=== PATIENT | male | born 1935 | race Hispanic/Latino ===

== ENCOUNTER 2017-05-04 01:51 | Emergency (ER) | payer MEDICARE ==
[2017-05-04 01:52] VITALS: BMI 27.1
[2017-05-04 02:01] VITALS: PULSE 72; TEMP 97.7
--- NOTE | 2017-05-04 02:42 | ED PDOC ---
Arrival/HPI - General Chief Complaint: Wound Check Time Seen by Provider: 05/04/17 01:55 Historian: Patient - History of Present Illness Narrative History of Present Illness (Text): 05/04/17 02:43 An 81 year old male, whose past medical history includes hypertension, presents to the emergency department complaining of left ear laceration. Patient reports he had left ear surgery about two weeks ago, stitches placed in a week ago. Notes several stitches in place, one stitch came out about half an hour prior to arrival. Patient was resting and in unsure of how stitch was removed. Patient denies any headache, dizziness or any other complaints at this time. Denies any history of diabetes. Medication: Aspirin Time/Duration: Prior to Arrival Symptom Onset: Sudden Symptom Course: Unchanged Activities at Onset: Rest Context: Home Past Medical History - Provider Review Nursing Documentation Reviewed: Yes - Infectious Disease Hx of Infectious Diseases: None - Tetanus Immunization Tetanus Immunization: Unknown - Cardiac Hx Hypertension: Yes Hx Pacemaker: No Other/Comment: OPEN HEART SURGERY 3 YEARS AGO - Pulmonary Hx Respiratory Disorders: No - Neurological Hx Neurological Disorder: No - HEENT Hx HEENT Disorder: No - Renal Hx Renal Disorder: No - Endocrine/Metabolic Hx Endocrine Disorders: No - Hematological/Oncological Hx Blood Transfusions: No Hx Blood Transfusion Reaction: No - Musculoskeletal/Rheumatological Hx Musculoskeletal Disorders: No - Gastrointestinal Hx Gastrointestinal Disorders: No - Psychiatric Hx Emotional Abuse: No Hx Physical Abuse: No Hx Substance Use: No - Surgical History Hx Open Heart Surgery: Yes Other/Comment: ENGROIN NAIL SURGERY - Anesthesia Hx Anesthesia: No Hx Anesthesia Reactions: No Hx Malignant Hyperthermia: No - Suicidal Assessment Feels Threatened In Home Enviroment: No Family/Social History - Physician Review Nursing Documentation Reviewed: Yes Family/Social History: No Known Family HX Smoking Status: Never Smoked Hx Alcohol Use: No Hx Substance Use: No Allergies/Home Meds Allergies/Adverse Reactions: Allergies No Known Allergies Allergy (Verified 03/20/12 11:44) Home Medications: Home Meds Medication Instructions Recorded Confirmed Metoprolol Succinate 50 mg PO DAILY 01/02/14 05/04/17 Review of Systems - Physician Review All systems were reviewed & negative as marked: Yes - Review of Systems Constitutional: Normal ENT: Other (left ear laceration) Skin: Laceration (from surgery) Neurological: absent: Headache, Dizziness Hemo/Lymphatic: absent: Easy Bleeding Physical Exam Vital Signs Reviewed: Yes Vital Signs Temp Pulse Resp BP Pulse Ox 05/04/17 03:25 72 20 160/79 H 98 05/04/17 01:57 97.7 F 72 18 132/74 99 Temperature: Afebrile Blood Pressure: Normal Pulse: Regular Respiratory Rate: Normal Appearance: Positive for: Well-Appearing Pain Distress: None Mental Status: Positive for: Alert and Oriented X 3 - Systems Exam Head: Present: Atraumatic, Normocephalic Pupils: Present: PERRL Extroacular Muscles: Present: EOMI Conjunctiva: Present: Normal Ears: Present: Other (arterial bleeding behind left ear at surgical site) Mouth: Present: Moist Mucous Membranes Respiratory/Chest: Present: Clear to Auscultation, Good Air Exchange. No: Respiratory Distress, Accessory Muscle Use Cardiovascular: Present: Regular Rate and Rhythm, Normal S1, S2. No: Murmurs Lower Extremity: Present: Edema Neurological: Present: GCS=15, Speech Normal Skin: Present: Warm, Dry, Normal Color. No: Rashes Psychiatric: Present: Alert, Oriented x 3, Normal Insight, Normal Concentration Medical Decision Making ED Course and Treatment: 05/04/17 02:35 Impression: An 81 year old male with left ear laceration. Plan: -- labs -- Reassess and disposition Prior Visits: Notes and results from previous visits were reviewed. Patient was last seen in the emergency department on 05/22/15 for evaluation of head injury and facial contusion s/p mechanical fall. Progress Notes: PROCEDURE: LACERATION REPAIR Performed by the emergency provider Location: behind left ear Length: 1 cm Description: clean wound edges,no foreign bodies Distal CMS: Normal. No deficits. Neurovascularly intact. Anesthesia: Lidocaine 1 cc without epi 1% Preparation: The wound was cleaned with NS and [place]. The area was prepped and draped in the usual sterile fashion. Exploration: The wound was explored and no foreign bodies were found. Procedure: The wound was applied direct pressure and closed with a figure of eight stitch. There was good / appropriate / adequate / loose approximation. In total, a figure of eight stitch over arterial bleeder were used. Post-Procedure: Good closure and hemostasis. The patient tolerated the procedure well and there were no complications. CSM remains intact. Post procedure dressing applied. Due to significant amount of blood loss, will check H and H and BMP 05/04/17 03:37 On re-evaluation, patient feels better and is in no acute distress. I have discussed the results and plan with the patient, who expresses understanding. Patient in agreement with plan to be discharged home. Patient is stable for discharge. Patient was instructed to follow up with physician or return if symptoms worsen or new concerning symptoms arise. He has mild anemia but does not require transfusion at this point 05/04/17 04:02 - Lab Interpretations Lab Results: 05/04/17 02:52 05/04/17 02:52 Lab Results 05/04/17 02:52: Sodium 141, Potassium 4.0, Chloride 107, Carbon Dioxide 26, Anion Gap 12, BUN 33 H, Creatinine 1.4, Est GFR ( Amer) 59, Est GFR (Non- Af Amer) 49, Random Glucose 102, Calcium 9.2 05/04/17 02:52: WBC 9.5, RBC 3.88, Hgb 11.6 L, Hct 34.2 L, MCV 88.1, MCH 29.9, MCHC 33.9, RDW 13.7, Plt Count 213, MPV 9.0, Gran % 71.2 H, Lymph % (Auto) 14.5 L, [place] % (Auto) 8.6 H, Eos % (Auto) 5.3 H, Baso % (Auto) 0.4, Gran # 6.76 H, Lymph # 1.4, Coryell # 0.8 H, Eos # 0.5, Baso # 0.04 I have reviewed the lab results: Yes - Scribe Statement The provider has reviewed the documentation as recorded by the Alma Dan Provider Scribe Attestation: All medical record entries made by the Scribe were at my direction and personally dictated by me. I have reviewed the chart and agree that the record accurately reflects my personal performance of the history, physical exam, medical decision making, and the department course for this patient. I have also personally directed, reviewed, and agree with the discharge instructions and disposition. Disposition/Present on Arrival - Present on Arrival Any Indicators Present on Arrival: No History of DVT/PE: No History of Uncontrolled Diabetes: No Urinary Catheter: No History of Decub. Ulcer: No History Surgical Site Infection Following: None - Disposition Have Diagnosis and Disposition been Completed?: Yes Diagnosis: Wound dehiscence, surgical Disposition: HOME/ ROUTINE Disposition Time: 03:38 Patient Plan: Discharge Condition: IMPROVED Discharge Instructions (ExitCare): Care For Your Stitches (ED) Additional Instructions: Follow up with your ENT doctor who did the surgery Referrals: Andrew Wu MD [Primary Care Provider] - Follow up with primary Forms: [employer] (Tongan)
[2017-05-04 03:17] LABS: BASO # 0.04 K/mm3 (0.0-2.0); BASO % 0.4 % (0.0-3.0); EOS # 0.5 (0.0-0.7); EOS % 5.3 % (1.5-5.0); GRAN # 6.76 (1.4-6.5); GRAN % 71.2 % (50.0-68.0); HEMATOCRIT 34.2 % (42.0-52.0); LYMPH # 1.4 (1.2-3.4); LYMPH % 14.5 % (22.0-35.0); MEAN CELL VOLUME 88.1 fl (80.0-105.0); MEAN CORPUSCULAR HEMOGLOBIN 29.9 pg (25.0-35.0); MEAN CORPUSCULAR HGB CONC 33.9 g/dl (31.0-37.0); MONO # 0.8 (0.1-0.6); MONO % 8.6 % (1.0-6.0); RED CELL DISTRIBUTION WIDTH 13.7 % (11.5-14.5); WHITE BLOOD COUNT 9.5 10^3/ul (4.5-11.0)
[2017-05-04 03:25] VITALS: BP 160/79; RESP 20; O2SAT 98
[2017-05-04 03:28] LABS: CALCIUM 9.2 mg/dL (8.4-10.5)
== END 2017-05-04 03:55 | disposition home or self-care (01) ==
LOC: ED 01:51
DX: T81.30XA Disruption of wound, unspecified, initial encounter (principal); Y83.8 Other surgical procedures as the cause of abnormal reaction of the patient, or of later complication, without mention of misadventure at the time of the procedure; Y92.89 Other specified places as the place of occurrence of the external cause

== ENCOUNTER 2017-10-18 22:18 | Emergency (ER) | payer MEDICARE ==
[2017-10-18 22:18] VITALS: BMI 27.1
[2017-10-18 22:30] VITALS: RESP 18; TEMP 97.8
[2017-10-18] MEDS ORDERED: Phenylephrine 0.5% Nasal Spray (15 ml) NS STA (22:36)
--- NOTE | 2017-10-18 23:08 | ED PDOC ---
Arrival/HPI <Justin Thornton - Last Filed: 10/19/17 00:17> - General Historian: Patient <Laura Bolivar - Last Filed: 10/19/17 01:57> - General Chief Complaint: ENT Problem Time Seen by Provider: 10/18/17 22:31 - History of Present Illness Narrative History of Present Illness (Text): 10/18/17 23:08 81yr old male presents today with nose bleed. pt states he blew his nose and it started bleeding. pt states for the past hour prior to arrival he tried to control the bleeding without success. pt states he has hx of nose bleeds in the past and has been able to stop the bleeding without any issues previously. pt denies headache, dizziness or weakness. pt denies trauma or injury. no fever/ chills. no vomiting/diarrhea. pt with hx of htn, took bp medication this morning at 7am. pt denies blood thinner usage. (Laura Bolivar) Past Medical History - Provider Review Nursing Documentation Reviewed: Yes - Travel History Have you recently traveled outside [place] w/in the past 3 mons?: No - Infectious Disease Hx of Infectious Diseases: None - Tetanus Immunization Tetanus Immunization: Unknown - Cardiac Hx Hypertension: Yes Hx Pacemaker: No Other/Comment: OPEN HEART SURGERY 3 YEARS AGO - Pulmonary Hx Respiratory Disorders: No - Neurological Hx Neurological Disorder: No - HEENT Hx HEENT Disorder: No - Renal Hx Renal Disorder: No - Endocrine/Metabolic Hx Endocrine Disorders: No - Hematological/Oncological Hx Blood Transfusions: No Hx Blood Transfusion Reaction: No - Musculoskeletal/Rheumatological Hx Musculoskeletal Disorders: No - Gastrointestinal Hx Gastrointestinal Disorders: No - Psychiatric Hx Emotional Abuse: No Hx Physical Abuse: No Hx Substance Use: No - Surgical History Hx Open Heart Surgery: Yes Other/Comment: ENGROIN NAIL SURGERY - Anesthesia Hx Anesthesia: No Hx Anesthesia Reactions: No Hx Malignant Hyperthermia: No - Suicidal Assessment Feels Threatened In Home Enviroment: No <Laura Bolivar - Last Filed: 10/19/17 01:57> Family/Social History - Physician Review Nursing Documentation Reviewed: Yes Family/Social History: Unknown Family HX Smoking Status: Never Smoked Hx Alcohol Use: No Hx Substance Use: No <Laura Bolivar - Last Filed: 10/19/17 01:57> Allergies/Home Meds <Justin Thornton - Last Filed: 10/19/17 00:17> <Laura Bolivar - Last Filed: 10/19/17 01:57> Allergies/Adverse Reactions: Allergies No Known Allergies Allergy (Verified 03/20/12 11:44) Home Medications: Home Meds Medication Instructions Recorded Confirmed Metoprolol Succinate 50 mg PO DAILY 01/02/14 10/18/17 Review of Systems - Review of Systems Constitutional: absent: Fatigue, Fevers ENT: Epistaxis Respiratory: absent: SOB, Cough Cardiovascular: absent: Chest Pain, Palpitations Gastrointestinal: absent: Abdominal Pain, Nausea, Vomiting Musculoskeletal: absent: Arthralgias, Back Pain, Neck Pain Skin: absent: Pruritis, Other Neurological: absent: Headache, Dizziness Psychiatric: absent: Anxiety, Depression <Laura Bolivar - Last Filed: 10/19/17 01:57> Physical Exam Vital Signs Reviewed: Yes Temperature: Afebrile Blood Pressure: Normal Pulse: Regular Respiratory Rate: Normal Appearance: Positive for: Well-Appearing, Non-Toxic, Comfortable Pain Distress: None Mental Status: Positive for: Alert and Oriented X 3 - Systems Exam Head: Present: Atraumatic Mouth: Present: Moist Mucous Membranes Nose (External): Present: Atraumatic Nose (Internal): Present: Epistaxis (+ right sided epistaxis). No: No Active Bleeding Neck: Present: Normal Range of Motion, Trachea Midline Respiratory/Chest: Present: Clear to Auscultation, Good Air Exchange. No: Respiratory Distress, Accessory Muscle Use Cardiovascular: Present: Regular Rate and Rhythm, Normal S1, S2. No: Murmurs Upper Extremity: Present: Normal ROM Lower Extremity: Present: Normal ROM Neurological: Present: GCS=15, Speech Normal Skin: Present: Warm, Dry, Normal Color. 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 Trevor-Synephrine; 2 sprays into the right 5.5 cm anterior rapid rhino placed. pt observed in ER; pt with continued HTN: clonidine 0.1mg ordered po. pt reassessment; pt keep touching packing; no distress. pt was seen and evaluated by dr. thornton; 0.2 clonidine added after no decrease in BP. pt reassessment; bleeding controlled; pt non toxic well appearing; no distress. blood pressure improved after clonidine pt and his was advised to f/u with ENT specialist tomorrow. advised immediate return if symptoms worsen,persist or if new symptoms develop. Patient verbalizes understanding of discharge instructions and need for immediate followup. all aspects of this case were discussed the attending of record. impression; epistaxis follow up with the ENT specialist tomorrow. augmentin 1 tablet twice daily x 7 days. return immediately if symptoms worsen,persist or if new symptoms develop. (Laura Bolivar) - Medication Orders Current Medication Orders: Discontinued Medications Amoxicillin/Clavulanate Potassium (Augmentin 875 Mg-125 Mg Tab) 1 tab PO STAT STA PRN Reason: Protocol Stop: 10/19/17 00:36 Last Admin: 10/19/17 01:08 Dose: 1 tab Clonidine HCl (Catapres) 0.1 mg PO STAT STA Stop: 10/18/17 23:43 Last Admin: 10/18/17 23:48 Dose: 0.1 mg MAR Pulse and Blood Pressure Document 10/18/17 23:48 AD (Rec: 10/18/17 23:49 AD [id number]) Pulse Pulse Rate (60-90 beats/min) 67 Blood Pressure Blood Pressure (100/60-150/90 mm Hg) 185/78 Clonidine HCl (Catapres) 0.1 mg PO STAT STA Stop: 10/19/17 00:41 Last Admin: 10/19/17 00:40 Dose: 0.1 mg MAR Pulse and Blood Pressure Document 10/19/17 00:40 AD (Rec: 10/19/17 01:02 [id number] Pulse Pulse Rate (60-90 beats/min) 62 Blood Pressure Blood Pressure (100/60-150/90 mm Hg) 210/80 Clonidine HCl (Catapres) 0.1 mg PO STAT STA Stop: 10/19/17 01:04 Last Admin: 10/19/17 01:09 Dose: 0.1 mg MAR Pulse and Blood Pressure Document 10/19/17 01:09 AD (Rec: 10/19/17 01:09 [id number] Pulse Pulse Rate (60-90 beats/min) 64 Blood Pressure Blood Pressure (100/60-150/90 mm Hg) 192/82 Phenylephrine HCl (Trevor-Synephrine 0.5% Nasal [place]) 0 ml NS STAT STA Stop: 10/18/17 22:37 Last Admin: 10/18/17 22:36 Dose: - 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 JAISON has examined the patient and agrees with the treatment plan. <Justin Thornton - Last Filed: 10/19/17 00:17> Disposition/Present on Arrival <Justin Thornton - Last Filed: 10/19/17 00:17> - Present on Arrival Any Indicators Present on Arrival: No History of DVT/PE: No History of Uncontrolled Diabetes: No Urinary Catheter: No History of Decub. Ulcer: No History Surgical Site Infection Following: None - Disposition Have Diagnosis and Disposition been Completed?: Yes Disposition Time: 01:50 Patient Plan: Discharge <Laura Bolivar - Last Filed: 10/19/17 01:57> - Disposition Diagnosis: Epistaxis Disposition: HOME/ ROUTINE Patient Problems: Current Active Problems Problem Status Onset Epistaxis Acute Condition: GOOD Discharge Instructions (ExitCare): Nosebleeds (DC) Additional Instructions: follow up with the ENT specialist tomorrow. return immediately if symptoms worsen,persist or if new symptoms develop. Prescriptions: Amoxicillin/Clavulanate [Augmentin 875 MG-125 MG] 1 tab PO BID #14 tab Referrals: Bryce TINAJERO,Lexx Shepherd MD [Primary Care Provider] - Follow up with primary Harman Alfred DO [Staff Provider] - Follow up with primary Silverio Triplett MD [Staff Provider] - Follow up with primary Forms: [employer] (Burkinan)
[2017-10-19] MEDS ORDERED: Amoxicillin-Clav 875-125 mg Tab PO STA (00:35)
[2017-10-19 01:09] VITALS: PULSE 64
[2017-10-19 01:40] VITALS: BP 172/77; O2SAT 98
== END 2017-10-19 01:55 | disposition home or self-care (01) ==
LOC: ED 22:18
DX: R04.0 Epistaxis (principal); I10 Essential (primary) hypertension

== ENCOUNTER 2018-08-02 12:28 | Inpatient (IN) | payer MEDICARE ==
--- NOTE | 2018-08-02 13:13 | ED PDOC ---
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 Pt reports cough and shortness of breath for a week, worse last night. Patient states he had leg pain yesterday and was barely able to move. Patient states he was given antibiotics at [facility]. Patient notes headache. Patient denies any chest pain, any current leg pain, or any other complaints. PMD: Lexx Worley Time/Duration: Prior to Arrival Symptom Onset: Sudden Symptom Course: Unchanged Activities at Onset: Light Past Medical History - Provider Review Nursing Documentation Reviewed: Yes - Infectious Disease Hx of Infectious Diseases: None - Tetanus Immunization Tetanus Immunization: Unknown - Cardiac Hx Hypertension: Yes Hx Pacemaker: No Other/Comment: OPEN HEART SURGERY 5YEARS AGO - Pulmonary Hx Respiratory Disorders: No - Neurological Hx Neurological Disorder: No - HEENT Hx HEENT Disorder: No - Renal Hx Renal Disorder: No - Endocrine/Metabolic Hx Endocrine Disorders: No - Hematological/Oncological Hx Blood Transfusions: No Hx Blood Transfusion Reaction: No - Musculoskeletal/Rheumatological Hx Musculoskeletal Disorders: No - Gastrointestinal Hx Gastrointestinal Disorders: No - Psychiatric Hx Emotional Abuse: No Hx Physical Abuse: No Hx Substance Use: No - Surgical History Hx Open Heart Surgery: Yes Other/Comment: ENGROIN NAIL SURGERY - Anesthesia Hx Anesthesia: No Hx Anesthesia Reactions: No Hx Malignant Hyperthermia: No - Suicidal Assessment Feels Threatened In Home Enviroment: No Family/Social History - Physician Review Nursing Documentation Reviewed: Yes Family/Social History: Unknown Family HX Smoking Status: Never Smoked Hx Alcohol Use: No Hx Substance Use: No Allergies/Home Meds Allergies/Adverse Reactions: Allergies No Known Allergies Allergy (Verified 03/20/12 11:44) Home Medications: Home Meds Medication Instructions Recorded Confirmed Metoprolol Succinate 50 mg PO DAILY 01/02/14 08/02/18 Review of Systems - Physician Review All systems were reviewed & negative as marked: Yes (All other systems negative except that noted in the HPI.) Physical Exam - Physical Exam Narrative Physical Exam (Text): Gen: VS reviewed, alert, well developed, well nourished, nontoxic, mild distress Eye: EOMI, PERRL Neck: no JVD, supple, no adenopathy CV: regular rate, regular rhythm, no rubs,no murmur, S1, S2 Pulm: Coarse breath sounds in left upper lung field. Abd: soft, nontender, no guarding, no rebound, no rigidity Ext: no edema Skin: good color, no rash, no cyanosis Psych: responds appropriately to questions, normal affect Neuro: oriented x3, CN2-12 intact grossly, motor intact, sensation intact Vital Signs Reviewed: Yes Vital Signs Temp Pulse Resp BP Pulse Ox 08/02/18 12:43 18 08/02/18 12:28 99 F 76 20 123/69 95 Temperature: Afebrile Blood Pressure: Normal Pulse: Regular Respiratory Rate: Normal Appearance: Positive for: Well-Appearing, Non-Toxic Pain Distress: None Mental Status: Positive for: Alert and Oriented X 3 Medical Decision Making ED Course and Treatment: 08/02/18 12:35 Impression: 82 M sent [facility] department [facility] with diagnosis of PNA based on chest x-ray results. Differential Diagnosis included but are not limited to: Plan: -- Labs -- EKG -- Blood culture -- Hand Sizer -- Influenza A B -- Procalcitonin -- Reassess and disposition Prior Visits: Notes and results from previous visits were reviewed. Patient was last seen in the emergency department on 10/18/17 for nose bleed. Pt was discharged home in good condition and directed to follow up with the ENT specialist. Pt was prescribed: Amoxicillin/Clavulanate [Augmentin 875 MG-125 MG] 1 tab PO BID #14 tab Progress Notes: 08/02/18 14:[address] matos. patient to be admitted for iv abx for pneumonia. patient remained stable throughout Emergency department course. patient received azithromycin and ceftriaxone prior to arrival to this Emergency department. it is unclear if blood cultures were drawn prior to iv abx given. consult to dr. herr. - RAD Interpretation Narrative RAD Interpretations (Text): 08/02/18 13:46 cxr fropm outside source reviewed by myself: there is a questionable infiltrate in the LLL. 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 I have reviewed the chart and agree that the record accurately reflects my personal performance of the history, physical exam, medical decision making, and the department course for this patient. I have also personally directed, reviewed, and agree with the discharge instructions and disposition. Disposition/Present on Arrival - Present on Arrival Any Indicators Present on Arrival: No History of DVT/PE: No History of Uncontrolled Diabetes: No Urinary Catheter: No History of Decub. Ulcer: No History Surgical Site Infection Following: None - Disposition Have Diagnosis and Disposition been Completed?: Yes Diagnosis: Pneumonia Disposition: HOSPITALIZED Disposition Time: 15:01 Patient Plan: Admission Condition: STABLE Forms: [employer] (Ukrainian)
--- NOTE | 2018-08-02 13:13 | ED PDOC ---
Arrival/HPI - General Chief Complaint: Shortness Of Breath Time Seen by Provider: 08/02/18 12:29 Past Medical History - Infectious Disease Hx of Infectious Diseases: None - Tetanus Immunization Tetanus Immunization: Unknown - Cardiac Hx Hypertension: Yes Hx Pacemaker: No Other/Comment: OPEN HEART SURGERY 5YEARS AGO - Pulmonary Hx Respiratory Disorders: No - Neurological Hx Neurological Disorder: No - HEENT Hx HEENT Disorder: No - Renal Hx Renal Disorder: No - Endocrine/Metabolic Hx Endocrine Disorders: No - Hematological/Oncological Hx Blood Transfusions: No Hx Blood Transfusion Reaction: No - Musculoskeletal/Rheumatological Hx Musculoskeletal Disorders: No - Gastrointestinal Hx Gastrointestinal Disorders: No - Psychiatric Hx Emotional Abuse: No Hx Physical Abuse: No Hx Substance Use: No - Surgical History Hx Open Heart Surgery: Yes Other/Comment: ENGROIN NAIL SURGERY - Anesthesia Hx Anesthesia: No Hx Anesthesia Reactions: No Hx Malignant Hyperthermia: No - Suicidal Assessment Feels Threatened In Home Enviroment: No Family/Social History Smoking Status: Never Smoked Hx Alcohol Use: No Hx Substance Use: No Allergies/Home Meds Allergies/Adverse Reactions: Allergies No Known Allergies Allergy (Verified 03/20/12 11:44) Home Medications: Home Meds Medication Instructions Recorded Confirmed Metoprolol Succinate 50 mg PO DAILY 01/02/14 10/18/17 Physical Exam Vital Signs Temp Pulse Resp BP Pulse Ox 08/02/18 12:43 18 08/02/18 12:28 99 F 76 20 123/69 95 Medical Decision Making - EKG Interpretation EKG Interpretation (Text): 08/02/18 13:13 1249: nsr at 76 bpm, nml qrs, peaked t waves, no acute sttw abn Interpreted by ED Physician: Yes Disposition/Present on Arrival - Present on Arrival History of DVT/PE: No History of Uncontrolled Diabetes: No Urinary Catheter: No History of Decub. Ulcer: No History Surgical Site Infection Following: None - Disposition Forms: [employer] (Thai)
[2018-08-02 13:15] LABS: BASO # 0.02 K/mm3 (0.0-2.0); BASO % 0.1 % (0.0-3.0); GRAN # 15.75 (1.4-6.5); GRAN % 87.1 % (50.0-68.0); HEMOGLOBIN 10.5 g/dL (14.0-18.0); LYMPH # 0.7 (1.2-3.4); LYMPH % 3.7 % (22.0-35.0); MEAN CELL VOLUME 86.1 fl (80.0-105.0); MEAN CORPUSCULAR HEMOGLOBIN 28.2 pg (25.0-35.0); MEAN CORPUSCULAR HGB CONC 32.7 g/dl (31.0-37.0); MONO # 1.7 (0.1-0.6); MONO % 9.1 % (1.0-6.0); PLATELET COUNT 230 10^3/uL (120.0-450.0); RBC 3.73 10^6/uL (3.5-6.1); RED CELL DISTRIBUTION WIDTH 14.3 % (11.5-14.5); VENOUS BLOOD GAS BASE EXCESS -2.6 mmol/L (0.0-2.0); VENOUS BLOOD GAS PO2 45 mm/Hg (30-55); VENOUS BLOOD PH 7.34 (7.32-7.43); WHITE BLOOD COUNT 18.1 10^3/uL (4.5-11.0)
[2018-08-02 13:21] VITALS: BMI 26.6
[2018-08-02 13:36] LABS: ALB/GLOB RATIO 1.1 (1.1-1.8); ALBUMIN 3.8 g/dL (3.0-4.8); CALCIUM 9.1 mg/dL (8.4-10.5)
[2018-08-02 13:37] LABS: LYMPHOCYTE 4 % (22.0-35.0); MONOCYTE 5 % (1.0-6.0); NEUTROPHIL 91 % (50.0-70.0); PLATELET ESTIMATE NORMAL (NORMAL)
--- NOTE | 2018-08-02 15:16 | CT ---
Date of service: 08/02/2018 PROCEDURE: CT Chest without contrast HISTORY: ?LLL infiltrate COMPARISON: None available. TECHNIQUE: Contiguous axial images were obtained through the chest without intravenous contrast enhancement. Sagittal and coronal reconstructions were performed. Radiation dose: Total exam DLP = 707.23 mGy-cm. This CT exam was performed using one or more of the following dose reduction techniques: Automated exposure control, adjustment of the mA and/or kV according to patient size, and/or use of iterative reconstruction technique. FINDINGS: LUNGS: There is dense patchy consolidation at the left lung base and along the posterior aspect of the superior segment of the left lower lobe. Findings are consistent with pneumonia. MEDIASTINUM: Unremarkable thoracic aorta. No aneurysm. Normal sized heart. Main pulmonary artery unremarkable. No vascular congestion. No lymphadenopathy. Aortic calcifications are seen. PLEURA: No pleural fluid. No pneumothorax. BONES: No fracture. No destructive lesion. UPPER ABDOMEN: Grossly unremarkable. OTHER FINDINGS: None. IMPRESSION: There is dense patchy consolidation at the left lung base and along the posterior aspect of the superior segment of the left lower lobe. Findings are consistent with pneumonia.
--- NOTE | 2018-08-02 17:23 | CARD ---
APPROVED REPORT Date of service: 08/02/2018 EKG Measurement Heart [id number] <Conclusion> Normal sinus rhythm Left ventricular hypertrophy with repolarization abnormality Abnormal ECG
[2018-08-02 20:17] LABS: BASO # 0.02 K/mm3 (0.0-2.0); BASO % 0.1 % (0.0-3.0); EOS % 0.1 % (1.5-5.0); GRAN # 13.17 (1.4-6.5); GRAN % 83.3 % (50.0-68.0); HEMOGLOBIN 9.9 g/dL (14.0-18.0); LYMPH # 1.3 (1.2-3.4); LYMPH % 8.2 % (22.0-35.0); MEAN CORPUSCULAR HEMOGLOBIN 27.8 pg (25.0-35.0); MEAN CORPUSCULAR HGB CONC 32.4 g/dl (31.0-37.0); MEAN PLATELET VOLUME 8.8 fl (7.0-11.0); MONO # 1.3 (0.1-0.6); MONO % 8.3 % (1.0-6.0); RBC 3.56 10^6/uL (3.5-6.1); RED CELL DISTRIBUTION WIDTH 14.3 % (11.5-14.5); WHITE BLOOD COUNT 15.8 10^3/uL (4.5-11.0)
[2018-08-02 20:21] LABS: ALB/GLOB RATIO 1.2 (1.1-1.8); ALBUMIN 3.6 g/dL (3.0-4.8); CALCIUM 9.1 mg/dL (8.4-10.5)
[2018-08-02] MEDS ORDERED: Pneumococcal 23-Valent Vaccine IM ONE (22:01)
[2018-08-02] MEDS ORDERED: Influenza Vaccine 60 mcg/0.5 mL SYR (4YR UP) IM ONE (22:01)
[2018-08-03] MEDS ORDERED: Albuterol-Ipratrop 3 mg / 0.5 (3 ml) UD IH PRN (07:31)
[2018-08-03] MEDS: Albuterol-Ipratrop 3 mg / 0.5 (3 ml) UD IH SCH ×3 (08:43→20:23)
[2018-08-03] MEDS: Budesonide 0.5 mg/2 ml Inhal Susp UD IH SCH ×2 (08:43→20:23)
--- NOTE | 2018-08-03 09:59 | CON ---
DATE: 08/03/2018 PULMONARY CONSULTATION REASON FOR PULMONARY CONSULTATION: Pneumonia. REFERRING PHYSICIAN FOR THIS PULMONARY CONSULTATION: Dr. Wu. HISTORY OF PRESENT ILLNESS: The patient is an 82-year-old male, with past medical history significant for aortic valve replacement, hypertension, who presents to [facility] with a 5-day history of worsening shortness of breath at rest, dyspnea on exertion, and cough. The patient denies sputum production. The patient also denies chest pain, coughing up of blood, or chest pain - brought on with deep respirations. The patient did present to the hospital with fevers. No history of chills or infectious exposure. No history of night sweats, weight loss or appetite change prior to the above events. No history of leg or calf pains. No history of syncope or diaphoresis. No history of recent travel or trauma. REVIEW OF SYSTEMS: No history of nausea, vomiting or diarrhea. No acute urinary symptoms. No new neurologic complaints. Rest of the review of systems is negative. ALLERGIES: NO KNOWN ALLERGIES. SOCIAL HISTORY: Positive for former tobacco usage. No alcohol. FAMILY HISTORY: No inheritable diseases. HOME MEDICATIONS: Metoprolol. PHYSICAL EXAMINATION: GENERAL: The patient is not short of breath at rest. He is not using accessory muscles for breathing. VITAL SIGNS: Temperature is 98.2, pulse is 76, respirations 18/20, blood pressure 139/61. Oxygen saturation on nasal cannula is 95%. HEENT: Normocephalic, atraumatic. No JVD. CARDIOVASCULAR: Systolic ejection murmur at the lower left sternal border. No S3 gallop. LUNGS: Crackles noted at the left base. Mild bilateral rhonchi. No wheezing. EXTREMITIES: No clubbing, cyanosis or edema. Calves are nontender to palpation. GASTROINTESTINAL: Abdomen is soft, nontender and nondistended. Bowel sounds are positive. SKIN: No acute rash. NEUROLOGIC: Exam limited at the present time. PERTINENT LABORATORY DATA: CAT scan of the chest was done yesterday and reviewed. There are patchy consolidations-- with air bronchograms-- noted at the left base, as well as the posterior aspect of the superior segment of the left lower lobe. Findings are consistent with pneumonia. There is no lymphadenopathy. CBC: White count 15.8K, hemoglobin 9.9, hematocrit 30.6, platelets of 216,000. Complete metabolic profile: BUN 33, creatinine 2, glucose 152. Rest of the metabolic profile is within normal limits. IMPRESSION: 1. Left lower lobe pneumonia. 2. Acute bronchitis. 3. Anemia. 4. Renal insufficiency. PLAN: The patient presents to [facility] with a 5-day history of worsening pulmonary symptoms. I did review the CAT scan of the chest. Findings are noted above. In short, there are patchy infiltrates noted at the left base, as well as the superior segment of the left lower lobe. Cultures have been ordered, and will be analyzed when feasible. I will start the patient on Rocephin and doxycycline this morning. On physical exam, there is no significant bronchospasm noted. In addition, there is no significant alveolar-arterial gradient. I will start the patient on DuoNeb treatments, as well as inhaled Pulmicort. The patient does state to feeling better this morning - compared to the past few days. Additional pulmonary intervention will be based on the clinical status of the patient. I will discuss the above with Dr. Wu. Thank you very much for this pulmonary consultation. Norman Crowder MD [facility]
[2018-08-03] MEDS: Metoprolol Succinate 50 mg XL Tab PO SCH (10:03)
[2018-08-03] MEDS: cefTRIAXone 1 gm 1 GM/100 ML BAG IVPB SCH (10:03)
--- NOTE | 2018-08-03 10:09 | HP ---
DATE OF EXAM: 08/03/2018 HISTORY OF PRESENT ILLNESS: The patient is currently in room 362, bed 2. He presented to the emergency room from the [facility] in [place] with a diagnosis of pneumonia. The patient states that he went to the [facility] because of a cough and shortness of breath, which started approximately a week ago and became worse last night. He was given antibiotics in the [facility] ER and requested to be admitted to [facility]. He denied any chest pain or any other complaints. PAST MEDICAL HISTORY: Remarkable for hypertension as well as aortic valve replacement 7 years ago. FAMILY HISTORY: Noncontributory. SOCIAL HISTORY: The patient never smoked and does not use alcohol. ALLERGIES: NO KNOWN ALLERGIES. REVIEW OF SYSTEMS: A 12-point review of systems is entirely unremarkable. PHYSICAL EXAMINATION: VITAL SIGNS: Temperature of 98.7, blood pressure 147/65, respiratory rate of 20, and an FIO2 of 94% on room air. HEENT: PERRLA, EOMI. There is no icterus present. NECK: Supple with a full range of motion. No bruits or adenopathy are appreciated. The lungs show left lower lobe rhonchi, otherwise clear. HEART: With a regular rate and rhythm. No murmurs, rubs or gallops. ABDOMEN: Soft. It is nontender. There is no organomegaly. Bowel sounds are normoactive. EXTREMITIES: Show no deformities or edema. NEUROLOGIC: The patient is intact. LABORATORY VALUES: WBCs of 15.8 which is down from 18.1, hemoglobin and hematocrit 9.9 and 30.6 with a shift to the left. Chemistry is remarkable for a BUN and creatinine of 33 and 2.0, random glucose of 152. Prolactin level is 0.[address] scan of the chest is consistent with a left lower lobe pneumonia. IMPRESSION: At this time, is a left lower lobe pneumonia. The patient will be admitted, treated with intravenous antibiotics and Dr. Crowder,is on pulmonary consult. Andrew Wu MD
[2018-08-04] MEDS: Albuterol-Ipratrop 3 mg / 0.5 (3 ml) UD IH SCH ×3 (01:47→21:45)
[2018-08-04 07:11] LABS: ALB/GLOB RATIO 1.1 (1.1-1.8); ALBUMIN 3.3 g/dL (3.0-4.8); BASO # 0.03 K/mm3 (0.0-2.0); BASO % 0.3 % (0.0-3.0); CALCIUM 8.6 mg/dL (8.4-10.5); EOS # 0.2 (0.0-0.7); EOS % 2.2 % (1.5-5.0); GRAN # 7.26 (1.4-6.5); GRAN % 80.2 % (50.0-68.0); HEMOGLOBIN 9.3 g/dL (14.0-18.0); LYMPH # 0.9 (1.2-3.4); LYMPH % 10.1 % (22.0-35.0); MEAN CELL VOLUME 85.3 fl (80.0-105.0); MEAN CORPUSCULAR HEMOGLOBIN 27.4 pg (25.0-35.0); MEAN CORPUSCULAR HGB CONC 32.2 g/dl (31.0-37.0); MEAN PLATELET VOLUME 8.9 fl (7.0-11.0); MONO # 0.7 (0.1-0.6); MONO % 7.2 % (1.0-6.0); RBC 3.39 10^6/uL (3.5-6.1); RED CELL DISTRIBUTION WIDTH 14.3 % (11.5-14.5); WHITE BLOOD COUNT 9.1 10^3/uL (4.5-11.0)
[2018-08-04] MEDS: Budesonide 0.5 mg/2 ml Inhal Susp UD IH SCH ×2 (07:55→21:45)
[2018-08-04 08:12] VITALS: RESP 20
--- NOTE | 2018-08-04 08:20 | PN ---
DATE: 08/04/2018 SUBJECTIVE: The patient appears comfortable this morning. He is not short of breath at rest. PHYSICAL EXAMINATION:. VITAL SIGNS: (Last noted in the computer): Temperature 97.8, pulse 69, respirations 19, blood pressure 150/60. Oxygen saturation on room air is 95%. HEENT: Normocephalic, atraumatic. No JVD. CARDIOVASCULAR: Systolic ejection murmur at the lower left sternal border. No S3 gallop. LUNGS: Crackles noted at the left base. Much less rhonchi. No wheezing. EXTREMITIES: No clubbing, cyanosis or edema. Calves are nontender to palpation. GASTROINTESTINAL: Abdomen is soft, nontender and nondistended. Bowel sounds are positive. SKIN: No acute rash. NEUROLOGIC: Exam limited at the present time. IMPRESSION: 1. Left lower lobe pneumonia. 2. Acute bronchitis. 3. Anemia. 4. Renal insufficiency. PLAN: The patient appears comfortable this morning. He is not short of breath at rest. His cough is much less. He does state to feeling much, much better overall. On physical exam, the patient's bronchospasm is significantly less. In addition, the alveolar-arterial gradient is also less. Oxygen saturation this morning on room air is now 95%. Cultures are negative so far. I will continue the current antibiotic therapy. Temperatures have now fully resolved. The leukocytosis has also fully resolved. Clinical status of the patient is significantly improved - compared to his initial presentation. The patient is advised to be out of bed as much as possible today. I will discuss the above with the attending physician. Norman Crowder MD MTDJose Luis
--- NOTE | 2018-08-04 09:51 | PN ---
SUBJECTIVE: The patient was seen and examined at bedside on the remote telemetry harry. No acute events overnight. He remains afebrile and hemodynamically stable. This morning he feels well and endorses significant improvement in his breathing since admission and overall offers no complaints. OBJECTIVE: VITAL SIGNS: Temperature 98.1, pulse 79, blood pressure 143/60, respiratory rate 20, oxygen saturation 94% on room air. GENERAL: No apparent distress. HEENT: PERRL, EOMI. No scleral icterus. No conjunctival pallor. NECK: No JVD. LUNGS: Faint bilateral rhonchi. CARDIOVASCULAR: Regular rate and rhythm. Normal S1, S2. Grade II/ ERNESTINA to RUSB. ABDOMEN: Normoactive bowel sounds. Soft, nontender, nondistended. EXTREMITIES: No edema. NEUROLOGIC: Awake, alert and oriented x 3. No focal motor deficits. LABORATORY DATA: WBC 9.1 with 80% neutrophils, hemoglobin 9.3, hematocrit 29, platelets 233. Chemistry reviewed and unremarkable. ASSESSMENT: The patient is an 82-year-old man with a past medical history of hypertension who presented with several day history of dyspnea and cough and was admitted for management of community-acquired pneumonia. PLAN: 1. Community-acquired pneumonia. Input from Dr. Crowder noted and greatly appreciated. The patient continues to demonstrate gradual improvement in his respiratory status. Continue with supplemental oxygen and bronchodilators as needed. Continue Doxycycline and Rocephin. 2. Hypertension. Blood pressure controlled. Continue Lisinopril 40 mg p.o. daily and Toprol XL 50 mg p.o. daily. 3. Prophylaxis. GI prophylaxis not indicated as the patient is eating. DVT prophylaxis not indicated as the patient is ambulatory. CODE STATUS: Full code. Lexx Wu MD MTDJose Luis
[2018-08-04] MEDS: Metoprolol Succinate 50 mg XL Tab PO SCH (10:35)
[2018-08-04] MEDS: cefTRIAXone 1 gm 1 GM/100 ML BAG IVPB SCH (10:38)
[2018-08-04 17:56] VITALS: PULSE 72; TEMP 98; O2SAT 98
[2018-08-05] MEDS: Albuterol-Ipratrop 3 mg / 0.5 (3 ml) UD IH SCH ×2 (02:20→08:00)
[2018-08-05 07:00] LABS: BASO # 0.03 K/mm3 (0.0-2.0); BASO % 0.3 % (0.0-3.0); EOS # 0.4 (0.0-0.7); EOS % 3.8 % (1.5-5.0); GRAN # 6.99 (1.4-6.5); GRAN % 76.5 % (50.0-68.0); HEMOGLOBIN 9.3 g/dL (14.0-18.0); LYMPH # 1.1 (1.2-3.4); MEAN CELL VOLUME 85.6 fl (80.0-105.0); MEAN CORPUSCULAR HEMOGLOBIN 27.4 pg (25.0-35.0); MEAN PLATELET VOLUME 8.8 fl (7.0-11.0); MONO # 0.7 (0.1-0.6); MONO % 7.4 % (1.0-6.0); RBC 3.4 10^6/uL (3.5-6.1); RED CELL DISTRIBUTION WIDTH 14.2 % (11.5-14.5); WHITE BLOOD COUNT 9.2 10^3/uL (4.5-11.0)
[2018-08-05 07:37] LABS: ALBUMIN 3.3 g/dL (3.0-4.8)
[2018-08-05 07:39] VITALS: BP 152/64
[2018-08-05] MEDS: Budesonide 0.5 mg/2 ml Inhal Susp UD IH SCH (08:00)
[2018-08-05] MEDS: Metoprolol Succinate 50 mg XL Tab PO SCH (09:17)
[2018-08-05] MEDS: cefTRIAXone 1 gm 1 GM/100 ML BAG IVPB SCH ×2 (09:20→10:19)
--- NOTE | 2018-08-05 10:46 | PN ---
SUBJECTIVE: The patient was seen and examined at bedside on the remote telemetry harry. No acute events overnight. He remains afebrile, hemodynamically stable and with resolution of his presenting symptoms. This morning he feels great, is ambulating around the harry without dyspnea and is looking forward to discharge home. OBJECTIVE: VITAL SIGNS: Temperature 98, pulse 72, blood pressure 152/64, respiratory rate 20, oxygen saturation 98% on room air. GENERAL: No apparent distress. HEENT: PERRL, EOMI. No scleral icterus. No conjunctival pallor. NECK: No JVD. LUNGS: Clear to auscultation. CARDIOVASCULAR: Regular rate and rhythm. Normal S1, S2. Grade II/ ERNESTINA to RUSB. ABDOMEN: Normoactive bowel sounds. Soft, nontender, nondistended. EXTREMITIES: No edema. NEUROLOGIC: Awake, alert and oriented x 3. No focal motor deficits. LABORATORY DATA: CBC reviewed and unremarkable. CMP reviewed and unremarkable. ASSESSMENT: The patient is an 82-year-old man with a past medical history of hypertension who presented with several day history of dyspnea and cough and was admitted for management of community-acquired pneumonia. PLAN: 1. Community-acquired pneumonia, resolving. Input from Dr. Crowder greatly appreciated. The patient continues to demonstrate improvement in his respiratory status. He is stable for discharge today and will complete a total 10 day course of oral antibiotics consisting of Levaquin 500 mg p.o. daily. 2. Hypertension. Blood pressure controlled. Continue Lisinopril 40 mg p.o. daily and Toprol XL 50 mg p.o. daily. 3. Prophylaxis. GI prophylaxis not indicated as the patient is eating. DVT prophylaxis not indicated as the patient is ambulatory. CODE STATUS: Full code. Lexx Wu MD [facility]
--- NOTE | 2018-08-05 10:52 | PN ---
DATE: 08/05/2018 PULMONARY NOTE SUBJECTIVE: The patient appears very comfortable this morning. He is not short of breath at rest. PHYSICAL EXAMINATION: VITAL SIGNS: (Last noted in the computer): Temperature is 98.0, pulse 72, respirations 18/20, blood pressure 125/59. Oxygen saturation on room air is 98%. HEENT: Normocephalic, atraumatic. No JVD. CARDIOVASCULAR: Systolic ejection murmur at the lower left sternal border. No S3 gallop. LUNGS: Less crackles noted at the left base. Much less/very minimal rhonchi. No wheezing. GI: Abdomen is soft, nontender and nondistended. Bowel sounds are positive. EXTREMITIES: No clubbing, cyanosis or edema. Calves are nontender to palpation. SKIN: No acute rash. NEUROLOGIC: Exam limited at the present time. IMPRESSION: 1. Left lower lobe pneumonia. 2. Acute bronchitis. 3. Anemia. 4. Renal insufficiency. PLAN: The patient appears very comfortable this morning. He is not short of breath at rest. He does state to feeling much, much better overall. On physical exam, the patient's bronchospasm continues to resolve. In addition, the alveolar-arterial gradient also continues to resolve. Last oxygen saturation measured on room air is 98%. I will continue the current nebulizer treatments and inhaled steroids for now. The patient remains on antibiotic therapy. Temperatures have fully resolved. The leukocytosis has also fully resolved. Cultures remained negative so far. Clinical status of the patient has significantly improved - compared to his initial presentation. I will discuss the above with Dr. Wu later this morning. Norman Crowder MD MTDJose Luis
--- NOTE | 2018-08-06 09:35 | DS ---
ADMISSION DIAGNOSIS: Community-acquired pneumonia. DISCHARGE DIAGNOSIS: Community-acquired pneumonia. SECONDARY DIAGNOSIS: Hypertension and history of AV replacement. CONSULTATIONS: Dr. Crowder (Pulmonary & Critical Care Medicine). PROCEDURES: None. IMAGING STUDIES: CT of the chest without contrast demonstrated a dense patchy consolidation to the left lung base consistent with pneumonia. HISTORY OF PRESENT ILLNESS: The patient is an 82-year-old man with a past medical history of hypertension who presented with a 5-day history of dyspnea with exertion and cough intermittently productive of green sputum. His symptoms gradually progressed to dyspnea at rest associated with pleuritic chest pain. He denied fevers, chills, rigors or hemoptysis associated with his symptoms. Due to his worsening dyspnea, he opted for ED evaluation. Examination in the ED found him to be febrile with a temperature of 101.8 but otherwise hemodynamically stable. He was also noted to have leukocytosis (WBC 18) and a CT of the the chest showed a left lower lobe pneumonia. He was started on IV antibiotics and admitted to the remote telemetry harry for continued management of community-acquired pneumonia. HOSPITAL COURSE: Upon admission to the medical harry he was evaluated by Dr. Crowder of Pulmonary & Critical Care Medicine. He was maintained on Ceftriaxone and Doxycycline along with supplemental oxygen and bronchodilators. Over the following 48 hours he demonstrated rapid improvement in his respiratory symptoms. On hospital day #3 he reported resolution of his presenting symptoms. After ambulating around the medical harry with no recurrence of his pulmonary symptoms he was deemed stable for discharge home. CONDITION: Good, improved. DISPOSITION: Home. DISCHARGE MEDICATIONS: Toprol-XL 50 mg p.o. daily, Lisinopril 40 mg p.o. daily and Levaquin 500 mg p.o. daily (to complete a total 10 day course). DISCHARGE INSTRUCTIONS: The patient was advised that if he has any recurrence of his symptoms to present to his PMD or to the nearest ED immediately. FOLLOWUP: The patient to follow up with his PMD within 1 week of discharge. The patient to follow up with Dr. Crowder as scheduled. Lexx Wu MD [facility] # [id number] MTDJose Luis
== END 2018-08-05 12:13 | disposition home or self-care (01) | DRG 195 ==
LOC: ED 12:28 → ERH 14:55 → 3RNO 21:56
PROVIDERS: ADMIT Student in an Organized Health Care Education/Training Program; ATTEND Student in an Organized Health Care Education/Training Program
DX: J18.1 Lobar pneumonia, unspecified organism (principal); I10 Essential (primary) hypertension; J20.9 Acute bronchitis, unspecified; D64.9 Anemia, unspecified; N28.9 Disorder of kidney and ureter, unspecified; Z87.891 Personal history of nicotine dependence; Z95.2 Presence of prosthetic heart valve